=== PATIENT | female | born 1955 | race African-American/Black ===

== ENCOUNTER 2018-06-05 00:47 | Inpatient (IN) | payer MEDICAID ==
[~2018-06-05] VITALS: Ht 162.6 cm; Wt 104.5 kg
[2018-06-05] MEDS ORDERED: NIFEdipine 10 MG CAP PO ONE (01:45)
[2018-06-05] MEDS ORDERED: ONDANSETRON HCL 4 MG/2 ML VIAL IV ONE (02:00)
[2018-06-05 02:03] LABS: Basophils # (auto) 0 uL; Basophils % (auto) 0.5 % (0.0-2.0); Eosinophils # (auto) 0.1 uL; Hematocrit 39.2 % (36.0-46.0); Hemoglobin 12.5 g/dL (12.2-16.2); Lymphocytes # (auto) 2.6 uL; Mean Corpuscular Hemoglobin 28.4 pg (28.0-32.0); Mean Corpuscular Hgb Conc. 31.8 g/dL (32.0-36.0); Mean Corpuscular Volume 89.5 fL (80.0-100.0); Monocytes # (auto) 0.4 uL; Monocytes % (auto) 5.3 % (0.0-12.0); Neutrophils # (auto) 4.2 uL; Neutrophils % (auto) 57.2 % (37.0-80.0); Nucleated Red Blood Cells % 0.1 %; Platelet Count (auto) 157 10^3/uL (140-450); Red Blood Cells 4.38 10^6/uL (4.0-5.20); White Blood Cell 7.3 10^3/uL (4.4-10.8)
[2018-06-05 02:16] LABS: Albumin 3.4 g/dL (3.4-5.0); Anion Gap 11 (5-15); Blood Urea Nitrogen 19 mg/dL (7-18); Calcium 8.2 mg/dL (8.5-10.1); Carbon Dioxide 24 mmol/L (21-32); Chloride 108 mmol/L (98-107); GFR African American 73 mL/min; GFR Non-African American 60 mL/min; Glucose 133 mg/dL (74-106); Potassium 3.3 mmol/L (3.5-5.1); Sodium 143 mmol/L (136-145)
[2018-06-05 02:28] LABS: Alanine Aminotransferase 18 U/L (13-56); Alkaline Phosphatase 67 U/L (45-117); Aspartate Aminotransferase 15 U/L (15-37); Bilirubin, Total 0.2 mg/dL (0.2-1.0); Total Protein 7.6 g/dL (6.4-8.2)
[2018-06-05 03:11] LABS: Urine Bacteria NONE SEEN /hpf (None Seen); Urine Blood Negative /uL (Negative); Urine Specific Gravity 1.014 (1.001-1.035); Urine WBC 1 /hpf (0 - 5)
[2018-06-05] MEDS ORDERED: ASPirin-EC 325mg tab PO ONE (03:15)
[2018-06-05] MEDS ORDERED: CLOPIDOGREL BISULFATE 75 MG TAB PO ONE (03:15)
[2018-06-05] MEDS ORDERED: ONDANSETRON HCL 4 MG/2 ML VIAL IV PRN (05:30)
[2018-06-05] MEDS: HCTZ 25 MG TAB PO SCH (09:34)
[2018-06-05] MEDS ORDERED: ASPirin 81 mg TAB PO SCH (10:00)
[2018-06-05] MEDS ORDERED: DEXTROSE (50%) 50ML SYRG IV PRN (12:15)
[2018-06-05] MEDS ORDERED: POTASSIUM CHL 10 Meq TABLET PO ONE (12:15)
[2018-06-05] MEDS: ACETAMINOPHEN 500 MG TAB PO PRN (16:07)
[2018-06-05] MEDS: InsuLIN REG 1unit/0.01ml Soln (100units/ml) SC SCH ×2 (16:51→22:00)
[2018-06-05] MEDS: ACCU-CHEK COMFORT CURVE STRIP VI SCH ×2 (16:51→22:00)
[2018-06-05 17:56] VITALS: BP 194/106
[2018-06-05 18:01] VITALS: BP 175/88
[2018-06-05 22:00] VITALS: BP 159/76
[2018-06-05] MEDS ORDERED: ATORVASTATIN 20 MG TAB PO SCH (22:00)
[2018-06-05] MEDS: LABETALOL HCL 5 MG/ML ML 20ML VIAL IV PRN (23:48)
[2018-06-06 05:00] VITALS: BP 140/76
[2018-06-06] MEDS: InsuLIN REG 1unit/0.01ml Soln (100units/ml) SC SCH ×4 (06:27→21:39)
[2018-06-06] MEDS: ACCU-CHEK COMFORT CURVE STRIP VI SCH ×4 (06:27→21:38)
[2018-06-06 07:04] LABS: Basophils # (auto) 0 uL; Basophils % (auto) 0.3 % (0.0-2.0); Eosinophils # (auto) 0.1 uL; Eosinophils % (auto) 1.9 % (0.0-7.0); Hematocrit 42.9 % (36.0-46.0); Hemoglobin 14.1 g/dL (12.2-16.2); Lymphocytes # (auto) 1.6 uL; Lymphocytes % (auto) 31.4 % (10.0-50.0); Mean Corpuscular Hemoglobin 29.3 pg (28.0-32.0); Mean Corpuscular Hgb Conc. 32.9 g/dL (32.0-36.0); Mean Corpuscular Volume 89.1 fL (80.0-100.0); Monocytes # (auto) 0.3 uL; Monocytes % (auto) 5.5 % (0.0-12.0); Neutrophils # (auto) 3.1 uL; Neutrophils % (auto) 60.9 % (37.0-80.0); Nucleated Red Blood Cells % 0.1 %; Platelet Count (auto) 182 10^3/uL (140-450); Red Blood Cells 4.82 10^6/uL (4.0-5.20); Red Cell Distribution Width 16.1 % (11.8-14.3); White Blood Cell 5.1 10^3/uL (4.4-10.8)
[2018-06-06 07:15] LABS: Calcium 9.1 mg/dL (8.5-10.1); Potassium 3.6 mmol/L (3.5-5.1)
[2018-06-06 07:22] LABS: BUN/Creatinine Ratio 12.9
[2018-06-06 09:00] VITALS: BP 160/70
[2018-06-06] MEDS: ACETAMINOPHEN 500 MG TAB PO PRN ×2 (09:01→22:46)
[2018-06-06] MEDS: LABETALOL HCL 5 MG/ML ML 20ML VIAL IV PRN ×2 (09:02→17:57)
[2018-06-06] MEDS ORDERED: CLOPIDOGREL BISULFATE 75 MG TAB PO SCH (10:00)
[2018-06-06] MEDS: HCTZ 25 MG TAB PO SCH (10:59)
[2018-06-06 13:00] VITALS: BP 160/82
[2018-06-06] MEDS ORDERED: IOHEXOL 350 MG/ML 100ML IJ ONE (16:16)
[2018-06-06 18:08] VITALS: BP 162/96
[2018-06-06 19:30] VITALS: BP 145/67
[2018-06-06 20:56] VITALS: BP 151/74
[2018-06-06] MEDS: ATORVASTATIN 20 MG TAB PO SCH (21:40)
[2018-06-07 05:13] VITALS: BP 152/84
[2018-06-07] MEDS: ACCU-CHEK COMFORT CURVE STRIP VI SCH (05:58)
[2018-06-07] MEDS: InsuLIN REG 1unit/0.01ml Soln (100units/ml) SC SCH (05:58)
[2018-06-07 07:46] LABS: Basophils # (auto) 0 uL; Basophils % (auto) 0.4 % (0.0-2.0); Eosinophils # (auto) 0.1 uL; Eosinophils % (auto) 2.5 % (0.0-7.0); Hematocrit 41.3 % (36.0-46.0); Hemoglobin 13.7 g/dL (12.2-16.2); Lymphocytes # (auto) 1.4 uL; Mean Corpuscular Hemoglobin 29.3 pg (28.0-32.0); Mean Corpuscular Volume 88.7 fL (80.0-100.0); Monocytes # (auto) 0.4 uL; Monocytes % (auto) 8.2 % (0.0-12.0); Neutrophils % (auto) 60.9 % (37.0-80.0); Nucleated Red Blood Cells % 0.1 %; Platelet Count (auto) 174 10^3/uL (140-450); Red Blood Cells 4.66 10^6/uL (4.0-5.20); Red Cell Distribution Width 15.9 % (11.8-14.3); White Blood Cell 4.9 10^3/uL (4.4-10.8)
[2018-06-07 08:05] LABS: BUN/Creatinine Ratio 20.7; Calcium 8.9 mg/dL (8.5-10.1); Potassium 3.8 mmol/L (3.5-5.1)
[2018-06-07 08:51] VITALS: BP 146/75
[2018-06-07] MEDS ORDERED: LORazepam 2MG/ML-1ML VIAL IV ONE (09:45)
[2018-06-07] MEDS ORDERED: ASPirin 81 mg TAB PO SCH (10:00)
[2018-06-07] MEDS: CLOPIDOGREL BISULFATE 75 MG TAB PO SCH (10:36)
[2018-06-07] MEDS: HCTZ 25 MG TAB PO SCH (10:36)
[2018-06-07 16:40] VITALS: BP 146/78
[2018-06-07 22:00] VITALS: BP 133/63
[2018-06-07] MEDS: ACETAMINOPHEN 500 MG TAB PO PRN (22:13)
[2018-06-07] MEDS: ATORVASTATIN 20 MG TAB PO SCH (22:13)
[2018-06-08 05:38] VITALS: BP 155/98
[2018-06-08] MEDS: LABETALOL HCL 5 MG/ML ML 20ML VIAL IV PRN (05:59)
[2018-06-08 07:33] VITALS: BP 139/72
[2018-06-08] MEDS: CLOPIDOGREL BISULFATE 75 MG TAB PO SCH (09:51)
[2018-06-08] MEDS: HCTZ 25 MG TAB PO SCH (09:51)
[2018-06-08 11:28] VITALS: BP 148/80
[2018-06-08 14:36] VITALS: BP 139/72
== END 2018-06-08 15:30 | disposition home or self-care (01) | DRG 47 ==
LOC: EDBD 00:47 → ER 00:47 → TELE 00:48 → TELE-WESTW 17:59
PROVIDERS: ADMIT Nurse Practitioner Family; ATTEND Internal Medicine
DX: G45.9 Transient cerebral ischemic attack, unspecified (principal); E11.21 Type 2 diabetes mellitus with diabetic nephropathy; N18.3 Chronic kidney disease, stage 3 (moderate); E11.22 Type 2 diabetes mellitus with diabetic chronic kidney disease; E66.01 Morbid (severe) obesity due to excess calories; G81.94 Hemiplegia, unspecified affecting left nondominant side; I16.9 Hypertensive crisis, unspecified; E87.6 Hypokalemia; I70.0 Atherosclerosis of aorta; I12.9 Hypertensive chronic kidney disease with stage 1 through stage 4 chronic kidney disease, or unspecified chronic kidney disease; I16.1 Hypertensive emergency; E78.5 Hyperlipidemia, unspecified; R29.700 NIHSS score 0; H53.8 Other visual disturbances; Z88.6 Allergy status to analgesic agent; Z88.5 Allergy status to narcotic agent; Z98.51 Tubal ligation status; Z68.39 Body mass index [BMI] 39.0-39.9, adult
CPT/HCPCS: 36415; 70450; 70496; 70498; 70551; 71045; 80048; 80053; 80061; 81001; 82962; 83036; 83735; 83880; 84443; 84484; 85025; 93306; 93886; 94761; 96374; G0378; J2405